=== PATIENT | male | born 1955 | race Caucasian/White ===

== ENCOUNTER 2017-10-10 06:11 | Day surgery (SDC) | payer OTHER, BC ==
[2017-10-10] MEDS ORDERED: LIDOCAINE 1% MDV 20ML VIAL SQ (06:30)
[2017-10-10] MEDS: LR 1,000 ML IV (06:50)
[2017-10-10] MEDS: METOPROLOL TART 25 MG TABLET PO (07:25)
[2017-10-10] MEDS ORDERED: METOCLOPRAMIDE INJ 10MG/2ML VIAL (J2765) As Ordered (08:07)
[2017-10-10] MEDS ORDERED: ONDANSETRON 4MG/2ML VIAL (J2405) As Ordered (08:07)
[2017-10-10] MEDS ORDERED: LIDOCAINE 2% INJ 100 MG/5 ML SDV (FOR ANES.) As Ordered (08:07)
[2017-10-10] MEDS ORDERED: PROPOFOL 200 MG/20 ML VIAL As Ordered (08:07)
[2017-10-10] MEDS ORDERED: fentaNYL 100 MCG/2 ML INJECTION (J3010) As Ordered (08:07)
[2017-10-10] MEDS ORDERED: MIDAZOLAM INJ 2 MG/2 ML VIAL (J2250) As Ordered (08:07)
[2017-10-10] MEDS: BUPIVACAINE HCL 0.25% 10 ML VIAL As Ordered (08:20)
[2017-10-10] MEDS: LIDOCAINE 1% MDV 20ML VIAL As Ordered (08:20)
[2017-10-10] MEDS: BACITRACIN OINT 30GM As Ordered (08:25)
[2017-10-10] MEDS ORDERED: PERCOCET 5MG/325MG TAB As Ordered (08:56)
[2017-10-10] MEDS: PERCOCET 5MG/325MG TAB PO (09:00)
[2017-10-10] MEDS ORDERED: ONDANSETRON 4MG/2ML VIAL (J2405) IV (09:15)
[2017-10-10] MEDS ORDERED: LR 1,000 ML IV (09:15)
[2017-10-10] MEDS ORDERED: METOCLOPRAMIDE INJ 10MG/2ML VIAL (J2765) IV (09:15)
[2017-10-10] MEDS ORDERED: fentaNYL 100 MCG/2 ML INJECTION (J3010) IV (09:15)
== END 2017-10-10 09:55 | disposition home or self-care (01) ==
LOC: M SDC 06:11
DX: A63.0 Anogenital (venereal) warts (principal); I11.9 Hypertensive heart disease without heart failure; I25.2 Old myocardial infarction; I25.10 Atherosclerotic heart disease of native coronary artery without angina pectoris; E78.5 Hyperlipidemia, unspecified; N52.9 Male erectile dysfunction, unspecified; M79.7 Fibromyalgia; M17.0 Bilateral primary osteoarthritis of knee; M47.9 Spondylosis, unspecified; F43.10 Post-traumatic stress disorder, unspecified; N40.1 Benign prostatic hyperplasia with lower urinary tract symptoms; K21.9 Gastro-esophageal reflux disease without esophagitis; Z79.899 Other long term (current) drug therapy; Z79.82 Long term (current) use of aspirin; Z79.1 Long term (current) use of non-steroidal anti-inflammatories (NSAID); Z79.891 Long term (current) use of opiate analgesic
CPT/HCPCS: 54057